=== PATIENT | male | born 1990 | race Caucasian/White ===

== ENCOUNTER 2020-04-12 22:06 | Emergency (ER) | payer OTHER ==
[2020-04-12 22:14] VITALS: BP 138/68; PULSE 80; TEMP 98.3; BMI 25.0
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
== END 2020-04-13 00:25 | disposition home or self-care (01) ==
LOC: FER 22:06
PROC: 0HQ1XZZ Repair Face Skin, External Approach (ICD-10-PCS; principal; 2020-04-12)
DX: S01.81XA Laceration without foreign body of other part of head, initial encounter (principal); S63.642A Sprain of metacarpophalangeal joint of left thumb, initial encounter; V47.5XXA Car driver injured in collision with fixed or stationary object in traffic accident, initial encounter
CPT/HCPCS: 73130-TC-LT-FY; 99283-25

== ENCOUNTER 2021-02-14 23:15 | Emergency (ER) | payer SELFPAY ==
[2021-02-14 23:31] VITALS: BP 139/92; PULSE 76; TEMP 98.8; BMI 25.7
== END 2021-02-15 00:11 | disposition home or self-care (01) ==
LOC: JER 23:15
DX: Z77.29 Contact with and (suspected) exposure to other hazardous substances (principal)
CPT/HCPCS: 99282-25

== ENCOUNTER 2021-11-18 18:20 | Emergency (ER) | payer OTHER ==
[2021-11-18 18:46] VITALS: BP 128/64; PULSE 82; TEMP 98.6; BMI 26.1
[2021-11-18] MEDS ORDERED: NAPROXEN 500 MG TABLET PO ONE (19:54)
[2021-11-18] MEDS ORDERED: NAPROXEN 500 MG TABLET ONE (19:55)
== END 2021-11-18 20:04 | disposition home or self-care (01) ==
LOC: FER 18:20
DX: M25.521 Pain in right elbow (principal); M25.561 Pain in right knee
CPT/HCPCS: 99283-25

== ENCOUNTER 2022-07-24 22:04 | Emergency (ER) | payer OTHER ==
[2022-07-24 22:08] VITALS: BP 118/67; PULSE 71; RESP 16; TEMP 99.1; BMI 25.0
== END 2022-07-24 22:36 | disposition home or self-care (01) ==
LOC: FER 22:04
DX: Z77.21 Contact with and (suspected) exposure to potentially hazardous body fluids (principal)
CPT/HCPCS: 99281-25

== ENCOUNTER 2024-06-01 19:27 | Emergency (ER) | payer OTHER ==
[2024-06-01 19:43] VITALS: BP 126/72; PULSE 77; RESP 16; TEMP 97.9; BMI 25.0
[2024-06-01] MEDS ORDERED: DIPHTH,PERTUSS(ACELL),TET 0.5 ML DISP.SYRIN IM ONE (20:40)
[2024-06-01] MEDS: DIPHTH,PERTUSS(ACELL),TET 0.5 ML DISP.SYRIN IM ONE (20:40)
== END 2024-06-01 20:49 | disposition home or self-care (01) ==
LOC: FER 19:27
DX: S80.02XA Contusion of left knee, initial encounter (principal); S80.01XA Contusion of right knee, initial encounter; S50.311A Abrasion of right elbow, initial encounter; Y35.811A Legal intervention involving manhandling, law enforcement official injured, initial encounter
CPT/HCPCS: 90715; 99282-25